=== PATIENT | male | born 1980 | race Asian ===

== ENCOUNTER 2018-09-16 19:26 | Emergency (ER) | payer OTHER ==
[~2018-09-16] VITALS: Ht 170.2 cm; Wt 65.8 kg
[2018-09-16 19:39] VITALS: Ht 170.2 cm; Wt 65.8 kg
[2018-09-16 21:25] LABS: BASOPHIL % 0.1 % (0-2); RED CELL DISTRIBUTION WIDTH 12.6 % (11.5-14.5)
[2018-09-16 21:33] LABS: PLATELET COUNT 125 x10^3mcL (130-400)
[2018-09-16 21:42] LABS: CALCIUM 7.9 mg/dL (8.5-10.1); CHLORIDE SERUM 102 mmol/L (98-107); GFR1 > 60 mL/min; GLUCOSE SERUM 135 mg/dL (74-106); POTASSIUM SERUM 3.6 mmol/L (3.5-5.1); SODIUM SERUM 138 mmol/L (136-145)
[2018-09-16 21:47] LABS: ALKALINE PHOSPHATASE 39 U/L (46-116); ALT/SGPT 17 U/L (16-63); AST/SGOT 19 U/L (15-37); BILIRUBIN TOTAL 0.25 mg/dL (0.20-1.00); TOTAL PROTEIN, SERUM 6.5 g/dL (6.4-8.2)
[2018-09-16 21:48] LABS: ALBUMIN 3.2 g/dL (3.4-5.0)
[2018-09-16 23:16] VITALS: BP 120/68
== END 2018-09-16 23:28 | disposition home or self-care (01) ==
LOC: ED 19:26
PROVIDERS: Emergency Medicine
DX: J10.1 Influenza due to other identified influenza virus with other respiratory manifestations (principal); R51 Headache
CPT/HCPCS: 87804; J0780; J1200; J7030

== ENCOUNTER 2018-09-18 11:26 | Emergency (ER) | payer OTHER ==
[~2018-09-18] VITALS: Ht 170.2 cm; Wt 69.9 kg
[2018-09-18 11:35] VITALS: BP 128/78; Ht 170.2 cm; Wt 69.9 kg
== END 2018-09-18 12:59 | disposition home or self-care (01) ==
LOC: ED 11:26
DX: G43.909 Migraine, unspecified, not intractable, without status migrainosus (principal); J10.1 Influenza due to other identified influenza virus with other respiratory manifestations
CPT/HCPCS: J1100; Q0092